=== PATIENT | female | born 1990 | race Asian ===

== ENCOUNTER → 2024-01-06 10:29 | Outpatient (CLI) | payer OTHER, SELFPAY ==
[2024-01-06 11:06] LABS: Add Manual Diff / Slide Review NO; Basophils Absolute Auto 0 /uL (0-100); Basophils Percent Auto 0.2 % (0-2); Eosinophils Absolute Auto 100 /uL (0-450); Eosinophils Percent Auto 0.6 % (2-4); Hematocrit 36.6 % (36-46); Hemoglobin 12.4 g/dL (12.0-16.0); Lymphocytes Absolute Auto 1200 /uL (1100-4500); Lymphocytes Percent Auto 12.8 % (25-40); Mean Corpuscular HGB Conc 33.7 % (30-36); Mean Corpuscular Hemoglobin 30.4 PG (26-34); Monocytes Absolute Auto 300 /uL (0-900); Monocytes Percent Auto 3.2 % (3-14); Neutrophils Absolute Auto 7600 /uL (1500-7000); Neutrophils Percent Auto 83.2 % (50-75); Platelet Count 321 X10^3/uL (150-400); Red Blood Cell Count 4.07 X10^6/uL (4.0-5.2); Red Cell Distribution Width 13.2 % (11.6-14.8); White Blood Cell Count 9.1 X10^3/uL (4.5-11.0)
[2024-01-06 12:20] LABS: Hepatitis B Surface Antigen NEGATIVE s/c (NEGATIVE); Rubella Antibody IgG 18.4 IU/mL (>15)
[2024-01-06 12:47] LABS: HIV 1 & 2 Ab/Ag 4th Gen Combo NEGATIVE (NEGATIVE); Hep C Virus Ab w/Reflex Quant NEGATIVE s/c (NEGATIVE)
[2024-01-07 11:09] LABS: Varicella IgG Antibody 1317 index (Immune >165)
[2024-01-08 09:04] LABS: RPR Screen Non Reactive (Non Reactive)
== END ==
LOC: LAB 10:30
PROVIDERS: PCP Nurse Practitioner Family; Referring Provider Student in an Organized Health Care Education/Training Program; Visit Provider Student in an Organized Health Care Education/Training Program
DX: Z34.81 Encounter for supervision of other normal pregnancy, first trimester (principal)
CPT/HCPCS: 36415; 80055; 86787; 86803; 86850; 86900; 86901; 87086; 87389

== ENCOUNTER → 2024-01-30 10:48 | Outpatient (CLI) | payer OTHER, SELFPAY ==
[2024-01-30 12:09] LABS: Natera Collection Specimen Collected
== END ==
PROVIDERS: PCP Nurse Practitioner Family; Referring Provider Obstetrics & Gynecology; Visit Provider Obstetrics & Gynecology
DX: Z34.82 Encounter for supervision of other normal pregnancy, second trimester (principal); Z3A.14 14 weeks gestation of pregnancy
CPT/HCPCS: 36415

== ENCOUNTER → 2024-03-02 11:15 | Outpatient (CLI) | payer OTHER, SELFPAY ==
[2024-03-06 22:04] LABS: AFP Value 58.3 ng/mL (.); Gest Age on Col Date 19.1 weeks (.); Gestational Age EDD (.); Insulin Dep Diabetes No (.); OSBR Risk 1IN 5096 (.); Results Report (.); Test Results *Screen Negative* (.)
== END ==
PROVIDERS: PCP Nurse Practitioner Family; Referring Provider Obstetrics & Gynecology; Visit Provider Obstetrics & Gynecology
DX: Z34.02 Encounter for supervision of normal first pregnancy, second trimester (principal); Z3A.19 19 weeks gestation of pregnancy
CPT/HCPCS: 36415; 82105

== ENCOUNTER → 2024-03-23 10:15 | Outpatient (CLI) | payer OTHER, SELFPAY ==
--- NOTE | 2024-03-23 10:15 | DI.US.S_ITS ---
PROCEDURE: US OB >= 14 WEEKS FETUS INDICATIONS: anatomy scan OUTSIDE/PRIOR DATING DATA: Last menstrual period (LMP): October 12, 2023. LMP-based estimated date of delivery (ELZA): July 19, 2024. First dating scan (date and location): December 16, 2019. Estimated date of delivery (ELZA) from first dating scan: July 26, 2024. The calculations are made using the ultrasound ELZA of July 26, 2024. TECHNIQUE: Real-time scanning was performed of the fetus, with image documentation and biometric measurements. Endovaginal scanning: Not performed COMPARISON: None. FINDINGS: General: A single living intrauterine gestation is present. Presentation: Breech. Placenta: Placental position is posterior , without previa. Amniotic fluid index: 15.1 cm, normal range is 5-24 cm. Single deepest vertical pocket is 4.7 cm. heart rate: 137 beats per minute. Maternal cervical canal: 3.7 cm long. Normal lower limit is 2.5 cm. biometrics: Biparietal diameter: 5.6 cm, 23 weeks and 1 day Head circumference: 21.1 cm, 23 weeks and 1 day Abdominal circumference: 18.5 cm, 23 weeks and 2 days Femur length: 3.8 cm, 22 weeks and 0 days Clinically estimated gestational age: 22 weeks and 1 day Composite gestational age from present scan: 22 weeks and 6 days Estimated weight and percentile: 535 g which correlates with the 77th percentile. Anatomic survey: Neuro: Ventricles are non-dilated at less than 10 mm. Cisterna magna is normal at 3-11 mm. Cerebellum is normal in size and morphology. Nuchal skin fold: Normal at less than 6 mm between 14-21 weeks gestational age. Face: Nose and lips, facial profile are normal. Spine: No evidence for spina bifida. Heart: 4-chambered heart is present, with normal ventricular outflow tracts. Diaphragm: Diaphragm is intact. Stomach: Left-sided stomach is present. Kidneys: No hydronephrosis. Normal is less than 5 mm in 2nd trimester, less than 7 mm in 3rd trimester. Cord: 3-vessel cord has orthotopic insertion. Bladder: Normal in size. Extremities: All 4 extremities identified. IMPRESSION: Single living intrauterine gestation with estimated sonographic gestational age of approximately 22 weeks and 6 days. Normal expected interval growth of occurred. Estimated weight of 535 g which correlates with the 77th percentile for gestational age. Otherwise, unremarkable second-trimester anatomy screening survey. We strive to produce accurate, complete, and clear reports of imaging services. To assist us in improving patient care, this report was composed using standard report templates and voice recognition software. Therefore, it may contain abnormal punctuation, insertions and/or omissions. Occasional wrong-word or sound-alike substitutions may occur. Though we review the report and make efforts to correct it, we do recommend that the report be read carefully in proper context to recognize any text inaccuracies. Dictated by: Natanael Arce M.D. on 03/23/2024 at 17:45 Approved by: Natanael Arce M.D. on 03/23/2024 at 17:54
== END ==
PROVIDERS: PCP Nurse Practitioner Family; Referring Provider Obstetrics & Gynecology; Visit Provider Obstetrics & Gynecology
DX: Z34.02 Encounter for supervision of normal first pregnancy, second trimester (principal); Z3A.22 22 weeks gestation of pregnancy
CPT/HCPCS: 76811

== ENCOUNTER → 2024-04-20 11:07 | Outpatient (CLI) | payer OTHER, SELFPAY ==
[2024-04-20 12:57] LABS: Hematocrit 33.6 % (36-46); Hemoglobin 11.2 g/dL (12.0-16.0)
[2024-04-20 13:19] LABS: GTT (PREG) 1 Hour PP 50gm Dose 98 mg/dL (76-139)
== END ==
PROVIDERS: PCP Nurse Practitioner Family; Referring Provider Obstetrics & Gynecology; Visit Provider Obstetrics & Gynecology
DX: Z34.02 Encounter for supervision of normal first pregnancy, second trimester (principal); Z3A.26 26 weeks gestation of pregnancy
CPT/HCPCS: 36415; 82950; 85014; 85018